=== PATIENT | male | born 1965 | race Caucasian/White ===

== ENCOUNTER 2016-10-12 09:12 | Emergency (ER) | payer OTHER ==
[~2016-10-12] VITALS: Ht 170.2 cm; Wt 181.4 kg
[~2016-10-12 09:12] MED LIST: AMOXICILLIN875 M1 PO; AMOXIL500 MG PO; DILAUDID2 MG PO; LEVSIN/SL0.125 MG SL; OXYCODONE HCL10 M2 PO; OXYCODONE-ACET1 EAC1 PO; PERCOCET 325 MG1 TA2 PO; ZOFRAN4 M1 SL
--- NOTE | 2016-10-12 09:24 | ED GENERAL ADULT ---
History of Present Illness General Chief Complaint: General Adult Stated Complaint: OUT PAIN MED NEEDS REFILL Source: patient, PCP Exam Limitations: no limitations Vital Signs & Intake/Output Vital Signs & Intake/Output Vital Signs Date Time Temp Pulse Resp B/P Pulse O2 O2 Flow FiO2 Ox Delivery Rate 10/12 0917 97.2 16 97 Room Air Allergies Coded Allergies: NO KNOWN ALLERGIES (03/24/15) Reconcile Medications Amoxicillin 875 MG TABLET 1 TAB PO BID INFECTION Ketorolac Tromethamine 10 MG TABLET 1 TAB PO TID PRN pain Oxycodone HCl/Acetaminophen (Oxycodone-Acetaminophen 10-325) 1 EACH TABLET 1 TAB PO BID PAIN (Reported) Oxycodone HCl/Acetaminophen (Percocet 5-325 MG Tablet) 5 MG-325 MG TABLET 1 TAB PO BID PRN PAIN Triage Note: 51 Y/O MALE REQUESTING REFILL OF PERCOCET; STATES HIS PRIMARY DOCTOR "STOPPED GIVING PAIN MEDS SO HE TOLD ME TO COME HER". PT ALSO HAS SCRIPT WITH LIST OF XRAYS HE STATES HE DOCTOR WANTS HIM TO HAVE (SEE CHART). Triage Nurses Notes Reviewed? yes Onset: Gradual Duration: constant Timing: remote history Injury Environment: home Severity: severe Severity Numbers: 9 HPI: Patient is a 51-year-old male with a past medical history of obesity and chronic pain who presents emergency room with request of medication refills of his Percocet 10 mg in which patient states that he ran out today. Patient denies any new mechanism injury and states that he has chronic pain all over especially his back. Patient denies any illness. (FERMIN CARPIO) Past History Travel History Traveled to [place] past 21 day No Medical History Any Pertinent Medical History? see below for history Neurological: NONE EENT: NONE Cardiovascular: NONE Respiratory: NONE Gastrointestinal: NONE Hepatic: NONE Renal: NONE Musculoskeletal: osteoarthritis Psychiatric: NONE Endocrine: obesity Surgical History Surgical History: appendectomy, cholecystectomy, hernia repair-umbilical Psychosocial History What is your primary language Turkmen Tobacco Use: Current Daily Use Daily Tobacco Use Amount/Type: => 5 Cigarettes daily Family History Hx Contributory? No (FERMIN CARPIO) Review of Systems Review of Systems Constitutional: Reports: no symptoms. EENTM: Reports: no symptoms. Respiratory: Reports: no symptoms. Cardiovascular: Reports: no symptoms. GI: Reports: no symptoms. Genitourinary: Reports: no symptoms. Musculoskeletal: Reports: see HPI, back pain. Skin: Reports: no symptoms. Neurological/Psychological: Reports: no symptoms. Hematologic/Endocrine: Reports: no symptoms. Immunologic/Allergic: Reports: no symptoms. All Other Systems: Reviewed and Negative (FERMIN CARPIO) Physical Exam Physical Exam General Appearance: no apparent distress, obese Skin: intact, normal color, warm/dry Comments: HEENT: Atraumatic, extraocular motion intact Neck: Supple, no lymphadenopathy Back: Normal inspection, decreased active range of motion, generalized low back pain noted Respiratory: No respiratory distress Extremities: No edema, full range of motion Bilateral upper extremity and lower extremity myotomes dermatomes intact Neuro: Alert and oriented x3 Psych: Mood affect normal, normal memory normal judgment. Core Measures ACS in differential dx? No CVA/TIA Diagnosis: No Severe Sepsis Present: No Septic Shock Present: No (FERMIN CARPIO) Progress Differential Diagnoses I considered the following diagnoses in my evaluation of the patient: [Spinal abscess, meningitis, sepsis, fracture, arthritis, chronic pain, narcotic dependency, narcotic abuse] Plan of Care: Current Medications Sig/Ladi Start time Last Medication Dose Stop Time Status Admin Ketorolac 30 MG ONCE ONE 10/12 1000 AC Tromethamine 10/12 1001 (Toradol) Patient currently presents with no concerns of new fracture or mechanism injury or recent trauma. Patient has a prescription that was prescribed by his primary care doctor ANJELICA that was prescribed 30 days ago of Percocet 10 mg. I discussed personally with his PCP in which he discussed with patient that pain management would be the next appropriate step for his symptoms and no longer felt comfortable prescribing narcotics to patient. Patient was given outpatient referrals for multiple x-rays in which the [facility] was requesting. I strongly advised patient to obtain these x-rays outpatient in the department radiology at [facility] to have the x-rays then faxed from his primary care doctor to pain management to set up establishment there. Patient was given short course of pain medications.\\ Patient upon discharge was in no apparent distress and will comply with discharge instructions and had no questions His PCP did state that it would be acceptable for short course of narcotic medications for patient and was not in any concern of narcotic abuse (FERMIN CARPIO) Initial ED EKG: none (FERMIN CARPIO) Departure Departure Disposition: HOME OR SELF CARE Condition: Stable Clinical Impression Primary Impression: Chronic pain Referrals: SANGITA DEJESUS MD (PCP/Family) Additional Instructions: As discussed begin the prescription and ketorolac for pain and inflammation AND BEGIN the prescription of Percocet for breakthrough pain relief. Prescriptions are waiting at the [facility]. Please immediately after [facility] go to [facility] to obtain x-rays prescribed by her primary care doctor and please follow-up with your primary care doctor and your [facility] for further evaluation of your symptoms. If symptoms worsen return to emergency room. Departure Forms: Customer Survey General Discharge Information Prescriptions: Current Visit Scripts Ketorolac Tromethamine 1 TAB PO TID PRN pain #15 TAB Oxycodone HCl/Acetaminophen (Percocet 5-325 MG Tablet) 1 TAB PO BID PRN PAIN #12 TAB (FERMIN CARPIO) PA/BAR GAUGER AND LUBRICATOR TENDER Co-Sign Statement Statement: ED Attending supervision documentation- [] I saw and evaluated the patient. I have also reviewed all the pertinent lab results and diagnostic results. I agree with the findings and the plan of care as documented in the PA's/BAR GAUGER AND LUBRICATOR TENDER's documentation. [x] I have reviewed the ED Record and agree with the PA's/BAR GAUGER AND LUBRICATOR TENDER's documentation. [] Additions or exceptions (if any) to the PAs/BAR GAUGER AND LUBRICATOR TENDER's note and plan are summarized below: [] (DEBORAH ROLON DO) Critical Care Note Critical Care Note Critical Care Time: non-applicable (FERMIN CARPIO)
[2016-10-12] MEDS ORDERED: PERCOCET 5-3251 EACH PO (09:47)
[2016-10-12] MEDS ORDERED: KETOROLAC TROME10 M1 PO (09:47)
== END 2016-10-12 09:59 ==
LOC: ERH 09:12
DX: G89.29 Other chronic pain (principal)
CPT/HCPCS: 96372; J1885

== ENCOUNTER 2016-10-15 10:45 | Emergency (ER) | payer OTHER ==
[~2016-10-15] VITALS: Ht 172.7 cm; Wt 176.9 kg
[~2016-10-15 10:45] MED LIST changes: +KETOROLAC TROME10 M1 PO; +PERCOCET 5-3251 EACH PO
[2016-10-15 11:21] VITALS: BP 165/105
--- NOTE | 2016-10-15 12:30 | ED GENERAL ADULT ---
History of Present Illness General Chief Complaint: General Adult Stated Complaint: REQUEST FOR PAIN MEDS Source: patient Exam Limitations: no limitations Allergies Coded Allergies: NO KNOWN ALLERGIES (03/24/15) Reconcile Medications Amoxicillin 875 MG TABLET 1 TAB PO BID INFECTION Ketorolac Tromethamine 10 MG TABLET 1 TAB PO TID PRN pain Oxycodone HCl/Acetaminophen (Oxycodone-Acetaminophen 10-325) 1 EACH TABLET 1 TAB PO BID PAIN (Reported) Oxycodone HCl/Acetaminophen (Percocet 5-325 MG Tablet) 5 MG-325 MG TABLET 1 TAB PO BID PRN PAIN Triage Note: PT TO ER SEEKING REFILL OF 10/325 MG PEROCET TABS, TAKES BID FOR CHRONIC PAIN. PCP WILL NO LONGER PRESCRIBE. WAITING TO GET INTO PAIN MANAGEMENT. Triage Nurses Notes Reviewed? yes HPI: This patient is a 51-year-old male with a past medical history including chronic pain who presented to the emergency department today requesting refill of Percocet. The patient reported that approximately one week ago his primary care physician stopped prescribing narcotics. He reported that he is currently in the process of being placed in pain management. He reported that he was seen here several days ago and got a 3 day supply of Percocet 5 mg. He reported, "I take 10 mg Percocets and the only gave me a 3 day supply. I need more. I cannot keep coming to the emergency department every 3 days and pay a $75 co-pay for this." The patient reported that he is an 10 out of 10, "all over," pain. Unable to assess if this pain is radiating or not. The pain is constant and sharp. The patient denied any difficulty breathing, abdominal pain, or chest pain. (ETHAN APONTE,BRITNEY) Vital Signs & Intake/Output Vital Signs & Intake/Output ED Intake and Output 10/16 0000 10/15 1200 Intake Total Output Total Balance Patient 390 lb Weight Past History Travel History Traveled to [place] past 21 day No Medical History Any Pertinent Medical History? see below for history Neurological: NONE EENT: NONE Cardiovascular: NONE Respiratory: NONE Gastrointestinal: NONE Hepatic: NONE Renal: NONE Musculoskeletal: osteoarthritis Psychiatric: NONE Endocrine: obesity Surgical History Surgical History: appendectomy, cholecystectomy, hernia repair-umbilical Psychosocial History What is your primary language Citizen Of [place] Tobacco Use: Current Daily Use Daily Tobacco Use Amount/Type: => 5 Cigarettes daily ETOH Use: occasional use Family History Hx Contributory? No (BRITNEY LONG PA-C) Review of Systems Review of Systems Constitutional: Reports: no symptoms. EENTM: Reports: no symptoms. Respiratory: Reports: no symptoms. Cardiovascular: Reports: no symptoms. GI: Reports: no symptoms. Musculoskeletal: Reports: see HPI. Skin: Reports: no symptoms. Neurological/Psychological: Reports: no symptoms. All Other Systems: Reviewed and Negative (BRITNEY LONG PA-C) Physical Exam Physical Exam General Appearance: well developed/nourished, no apparent distress, alert, awake Comments: Well-developed well-nourished person in no acute distress HEENT: Normal EENT exam, head normocephalic, moist mucous membranes Pupils equally round and reactive to light. Neck: Supple Back: Antalgic gait Respiratory: No respiratory distress. Speaking in full sentences Extremity: Normal and equal pulses Neuro: Alert oriented x3, cranial nerves II through XII grossly intact. Skin: No appreciable rash on exposed skin, skin is warm and dry. Psych: Mood and affect is normal Core Measures ACS in differential dx? No CVA/TIA Diagnosis: No Severe Sepsis Present: No Septic Shock Present: No (BRITNEY LONG PA-C) Progress Differential Diagnoses I considered the following diagnoses in my evaluation of the patient: [Chronic pain, arthritis, medication seeking, opioid dependence, medication reaction] Plan of Care: Current Medications Sig/Ladi Start time Last Medication Dose Stop Time Status Admin Oxycodone/ 2 TAB ONCE ONE 10/15 1230 UNVr Acetaminophen 10/15 1231 (Percocet) Initial ED EKG: none Comments: I explained to this patient extensively my reasoning for feeling uncomfortable prescribing him more narcotics at this time. He stated to me that his primary care physician will no longer prescribing him narcotic type pain medication for his chronic pain. He is currently being placed in pain management. This patient received a refill of his narcotic prescription here in the emergency department several days ago. At this time, as this patient's primary care physician will no longer prescribe narcotic medications to him, I do not feel comfortable refilling a narcotic pain medication at this time. I offered to him several times to give him a prescription for a non-narcotic pain medication and he adamantly refused. (BRITNEY LONG PA-C) Departure Departure Disposition: HOME OR SELF CARE Condition: Stable Clinical Impression Primary Impression: Chronic pain Qualifiers: Chronic pain type: other chronic pain Qualified Code: G89.29 - Other chronic pain Referrals: SANGITA DEJESUS MD (PCP/Family) Additional Instructions: PLEASE FOLLOW-UP WITH YOUR PRIMARY CARE PHYSICIAN. Departure Forms: Customer Survey General Discharge Information (BRITNEY LONG PA-C) PA/CASING SOAKER Co-Sign Statement Statement: ED Attending supervision documentation- [] I saw and evaluated the patient. I have also reviewed all the pertinent lab results and diagnostic results. I agree with the findings and the plan of care as documented in the PA's/CASING SOAKER's documentation. x I have reviewed the ED Record and agree with the PA's/CASING SOAKER's documentation. [] Additions or exceptions (if any) to the PAs/CASING SOAKER's note and plan are summarized below: [] (NORA MENDOZA,CARMEL) Critical Care Note Critical Care Note Critical Care Time: non-applicable (BRITNEY LONG PA-C)
== END 2016-10-15 12:38 ==
LOC: ERH 10:45
DX: G89.29 Other chronic pain (principal)

== ENCOUNTER 2016-10-21 12:26 | Emergency (ER) | payer OTHER ==
[~2016-10-21] VITALS: Ht 172.7 cm; Wt 172.4 kg
[2016-10-21 12:35] VITALS: BP 163/79
[2016-10-21] MEDS ORDERED: PERCOCET 10-321 EACH PO (13:13)
--- NOTE | 2016-10-21 13:14 | ED UPPER/LOWER EXTREMITY COMPL ---
History of Present Illness General Chief Complaint: Shoulder Injury Stated Complaint: RT SHOULDER/RT HIP PAIN Source: patient Exam Limitations: no limitations Vital Signs & Intake/Output Vital Signs & Intake/Output Vital Signs Date Time Temp Pulse Resp B/P Pulse O2 O2 Flow FiO2 Ox Delivery Rate 10/21 1235 97.7 87 20 163/79 96 Room Air Allergies Coded Allergies: NO KNOWN ALLERGIES (03/24/15) Reconcile Medications Amoxicillin 875 MG TABLET 1 TAB PO BID INFECTION Ketorolac Tromethamine 10 MG TABLET 1 TAB PO TID PRN pain Oxycodone HCl/Acetaminophen (Oxycodone-Acetaminophen 10-325) 1 EACH TABLET 1 TAB PO BID PAIN (Reported) Oxycodone HCl/Acetaminophen (Percocet 10-325 MG Tablet) 10 MG-325 MG TABLET 1 TAB PO BID PAIN Oxycodone HCl/Acetaminophen (Percocet 5-325 MG Tablet) 5 MG-325 MG TABLET 1 TAB PO BID PRN PAIN Triage Note: PT TO ED C/O RIGHT SHOULDER AND B/L HIP PAIN. PT STATES HIS PCP IS NO LONGER PRESCRIBING PAIN MEDS. PT IS WAITING TO GET INTO PAIN MANAGEMENT. Triage Nurses Notes Reviewed? yes Onset: Abrupt Duration: chronic pain Timing: recent history Severity: moderate, severe Pain/Injury Location: Right: Shoulder, Hip. No Modifying Factors: none HPI: 51-year-old male comes into emergency room with complaints of chronic pain to his right shoulder and right hip. Symptoms of a going on for years. Patient reports that his primary care doctor self prescribing him his Percocet and he is in the process of following up with pain management. Denies any changes in regards to the pain. Significant pain in right shoulder with any range of motion. Patient saw an orthopedic doctor in the past who said that he was not a good surgical candidate. Patient also complains of severe right hip pain. Denies any recent falls or trauma. Denies any other associated symptoms. (ALONZO BURGOS) Past History Travel History Traveled to [place] past 21 day No Medical History Any Pertinent Medical History? see below for history Neurological: NONE EENT: NONE Cardiovascular: NONE Respiratory: NONE Gastrointestinal: NONE Hepatic: NONE Renal: NONE Musculoskeletal: osteoarthritis Psychiatric: NONE Endocrine: obesity Surgical History Surgical History: appendectomy, cholecystectomy, hernia repair-umbilical Psychosocial History What is your primary language Kazakh Tobacco Use: Current Daily Use Daily Tobacco Use Amount/Type: => 5 Cigarettes daily ETOH Use: denies use Illicit Drug Use: denies illicit drug use Family History Hx Contributory? No (ALONZO BURGOS) Review of Systems Review of Systems Constitutional: Reports: no symptoms. EENTM: Reports: no symptoms. Respiratory: Reports: no symptoms. Cardiovascular: Reports: no symptoms. Gastrointestinal/Abdominal: Reports: no symptoms. Genitourinary: Reports: no symptoms. Musculoskeletal: Reports: see HPI. Skin: Reports: no symptoms. Neurological/Psychological: Reports: no symptoms. Hematologic/Endocrine: Reports: no symptoms. Immunological: Reports: no symptoms. All Other Systems: Reviewed and Negative (ALONZO BURGOS) Physical Exam Physical Exam General Appearance: well developed/nourished, mild distress Head: atraumatic Eyes: Bilateral: normal appearance. Ears, Nose, Throat: normal ENT inspection, hearing grossly normal Neck: normal inspection Cardiovascular/Respiratory: no respiratory distress Back: normal inspection Shoulder Right: soft tissue tenderness, limited range of motion Neurologic/Tendon: normal sensation, responds to pain, no evidence tendon injury , no pulse deficit Skin: intact, normal color, warm/dry Lymphatic: no anterior cervical phillip (ALONZO BURGOS) Progress Differential Diagnosis: contusion, dislocation, fracture, gout, septic arthritis , sprain, tendon injury, arthritis, rotator cuff tear, chronic pain, Plan of Care: 10/21/2016 1:29:19 PM Patient is here for pain medication. Patient reports that his neighbor was given 15 tabs of his pain medication to get him through with pain management here at [facility]. This is a chronic issue for the patient. I explained to him that we can give him a one-time prescription but we cannot manage his chronic pain. Patient understands plan. (ALONZO BURGOS) Departure Departure Disposition: HOME OR SELF CARE Condition: Stable Clinical Impression Primary Impression: Chronic pain Referrals: SANGITA DEJESUS MD (PCP/Family) Additional Instructions: Take Percocet as prescribed. Follow-up with pain management doctor as ready scheduled. Return if any other concerns worsening symptoms. Follow-up with her primary care doctor. Please go over all results of today's visit with your primary care doctor. Contact your primary care doctor to let them know you were here in the emergency room. There may be nonspecific findings which may not be related to your visit today here in the emergency room but may require further evaluation and chronic monitoring by your primary care doctor. If you had a laceration today the chance of foreign body always remains. You should follow-up with your primary care doctor for recheck in 3-5 days for a wound check. If you had an x-ray done there is a chance that a fracture could have been missed on initial read and you should follow-up with your primary care doctor for repeat x-rays if symptoms persist. If your blood pressure was elevated here in the emergency room please have rechecked by her primary care doctor within the next 48 hours by your primary care doctor. If you were prescribed a narcotic here in the emergency room or any type of controlled substances you're not allowed to drive while taking this medication or operate any type of heavy machinery. Narcotics can make you feel lightheaded dizziness nausea and can cause constipation. You may need to pickling tank operator a stool softener. Thank you for choosing [facility] emergency room. Please return to the emergency room immediately if you have any other concerns worsening of symptoms. Departure Forms: Customer Survey General Discharge Information Prescriptions: Current Visit Scripts Oxycodone HCl/Acetaminophen (Percocet 10-325 MG Tablet) 1 TAB PO BID #15 TAB (ALONZO BURGOS) PA/BUCKLE COVERER Co-Sign Statement Statement: ED Attending supervision documentation- [] I saw and evaluated the patient. I have also reviewed all the pertinent lab results and diagnostic results. I agree with the findings and the plan of care as documented in the PA's/BUCKLE COVERER's documentation. [X] I have reviewed the ED Record and agree with the PA's/BUCKLE COVERER's documentation. [] Additions or exceptions (if any) to the PAs/BUCKLE COVERER's note and plan are summarized below: [] (SUJATHA MENDOZA,PETER)
== END 2016-10-21 13:49 ==
LOC: ERH 12:26
DX: G89.29 Other chronic pain (principal)